=== PATIENT | male | born 1980 | race Hispanic/Latino ===

== ENCOUNTER → 2017-05-23 | Outpatient (CLI) | payer OTHER ==
--- NOTE | 2017-05-23 09:47 | Diagnostic Imaging Report ---
PROCEDURE: X-RAY UPPER GI SERIES WITH AIR CONTRAST TECHNIQUE:Multiple fluoroscopic spot images were acquired during the dynamic evaluation of the esophagus, stomach, and duodenum after the administration of effervescent crystals and thin barium. Images were obtained in the upright and supine positions for multiple obliquities. COMPARISON: None. INDICATIONS: ACID REFLUX, GERD FINDINGS: ESOPHAGUS: Motility: Within normal limits. Mucosa: Unremarkable. Distensibility: Normal. GASTROESOPHAGEAL JUNCTION: No evidence of hiatal hernia. GASTROESOPHAGEAL REFLUX: None observed. STOMACH: Normally distensible and demonstrates normal contours and mucosal pattern. DUODENUM: Bulb and sweep are normal. Duodenal-jejunal junction is in the normal expected position. IMPRESSION: No acute radiographic abnormality. Dictated by: Jon Barlow M.D. on 05/23/2017 at 9:56 Electronically approved by: Jon Barlow M.D. on 05/23/2017 at 9:56
== END ==
LOC: DX 08:03
PROVIDERS: ATTEND Family Medicine
DX: K21.9 Gastro-esophageal reflux disease without esophagitis (principal)
CPT/HCPCS: 74246